=== PATIENT | female | born 1995 | race Caucasian/White ===

== ENCOUNTER 2024-04-04 21:58 | Emergency (ER) | payer OTHER, SELFPAY ==
[2024-04-04 22:00] VITALS: BP 107/64
[2024-04-04 23:12] LABS: % Basophils 0.3 % (0-2); % Eosinophils 0.8 % (0-6); % Immature Granulocytes 0.3 % (0-0.5); % Lymphocytes 19.6 % (20.5-51.1); % Monocytes 9.3 % (1.7-9.3); % Neutrophils 69.7 % (42.2-75.2); Absolute Lymphocytes 0.8 10^3/uL (1.2-3.4); Absolute Monocytes 0.4 10^3/uL (0.1-0.6); Absolute Neutrophils 2.8 10^3/uL (1.4-6.5); Hematocrit 31.6 % (37.0-47.0); Hemoglobin 10.7 g/dL (12.0-16.0); Mean Corp Hgb Conc. 33.9 g/dL (33.0-37.0); Mean Corpuscular Hgb 26.8 pg (27.0-31.0); Mean Platelet Volume 10.7 fL (7.4-10.4); Nucleated Red Blood Cells % 0 %; Platelet Count 146 10^3/uL (130-400); Red Cell Dist. Width 17.3 % (11.5-14.5)
[2024-04-04 23:27] LABS: ALT (SGPT) 16 U/L (0-35); AST (SGOT) 24 U/L (14-36); Alkaline Phosphatase 55 U/L (38-126); Blood Urea Nitrogen 13 mg/dl (7-17); Calcium 9.4 mg/dl (8.4-10.2); Carbon Dioxide 22 mmol/L (22-30); Chloride 108 mmol/L (98-107); Glucose 104 mg/dl (70-99); Lipase 73 U/L (23-300); Potassium 3.8 mmol/L (3.5-5.1); Sodium 137 mmol/L (135-145); Total Bilirubin 0.4 mg/dl (0.2-1.3); Total Protein 6.6 g/dl (6.3-8.2); eGFR > 60.00
--- NOTE | 2024-04-05 00:09 | ED.GENMED ---
History of Present Illness
<Kendall Hernandez MD - Last Filed: 04/05/24 02:12>
General
Chief Complaint: Abdominal Pain
Source: patient and spouse
Exam Limitations: none
Time Seen by Provider: 04/04/24 23:08
Nursing documentation reviewed up to this point in time: agreed with
Travel History
Have you had any contact with someone who has COVID-19?: No
Do you have any symptoms of coronavirus? Fever > 100 degrees, chills, cough, shortness of breath, sore throat, loss of taste or smell, muscle aches, or headache?: No
History of Present Illness
History of Present Illness:
Patient G2, P1, approximately 6 weeks , presents to ED secondary to diffuse abdominal cramping sensation followed by 3 episodes of diarrhea, on approxi-1 hour after having dinner this evening. Abdominal pain described as diffuse, crampy,
without any alleviating or exacerbating factors. However, since onset of symptoms, patient states that her abdominal pain has improved. Denies vomiting. Denies fever or chills. Patient's spouse had same food, and is without any symptoms.
Patient has an appointment with her [employer] physician in 1 month. Denies recent illness. Denies trauma. Denies vaginal bleeding.
Past History
<Kendall Hernandez MD - Last Filed: 04/05/24 02:12>
Past History
ED Past Medical History: Hypothyroidism, Other (Iron deficient anemia) and Other (PFO)
ED Past Surgical History: and Orthopedic (Back surgery)
Social History
Tobacco: Non-smoker
Alcohol: None
Drug: None
Living: with family
Review of Systems
<Kendall Hernandez MD - Last Filed: 04/05/24 02:12>
Review of Systems
Allergies reviewed?: Yes
All Other Systems: ROS reviewed and negative except as documented in HPI and ROS
Constitutional: Reports no symptoms
EENT: Reports no symptoms
Respiratory: Reports no symptoms
Cardiac: Reports no symptoms
ABD/GI: Reports abdominal pain and diarrhea; Denies nausea or vomiting
: Denies bleeding
Musculoskeletal: Reports no symptoms
Skin: Reports no symptoms
Neurological: Reports no symptoms
Phy Exam
<Kendall Hernandez MD - Last Filed: 04/05/24 02:12>
Physical Exam
Physical Exam:
Physical Exam
General: no apparent distress, not acutely ill. afebrile
Head: nc/at. eomi
Neck: supple. no meningeal signs.
Heart: s1/s2 regular rate and rhythm, no murmur. equal radial pulses.
Lungs: no acute respiratory distress. clear bilaterally
Abdomen: normal bowel sounds. mild diffuse abdominal tenderness without distention.
Neuro: alert and oriented. no focal neurological deficits
Skin: no rash
Psychiatric: well kept. interactive and cooperative
Extremities: no edema. no calf tenderness.
Course
<Kendall Hernandez MD - Last Filed: 04/05/24 02:12>
Orders/Labs/Results
Orders:
Orders
04/04/24 23:06
Complete Blood Count/With Diff Urgent
Comprehensive Metabolic Panel Urgent
HCG, Beta Quantitative [Beta HCG Quantitative] Urgent
Is this a screen?: No
Lipase Urgent
04/05/24 01:07
US W Transvaginal Urgent
Reason For Exam: lower abdominal pain
Abnormal Lab Results
04/04/24
23:06
WBC 4.0 L 10^3/uL
(4.8-10.8)
RBC 4.00 L 10^6/uL
(4.20-5.40)
Hgb 10.7 L g/dL
(12.0-16.0)
Hct 31.6 L %
(37.0-47.0)
MCV 79.0 L fL
(81.0-99.0)
MCH 26.8 L pg
(27.0-31.0)
RDW 17.3 H %
(11.5-14.5)
MPV 10.7 H fL
(7.4-10.4)
Absolute Lymphs (auto) 0.8 L 10^3/uL
(1.2-3.4)
Lymphocytes % 19.6 L %
(20.5-51.1)
Chloride 108 H mmol/L
(98-107)
Creatinine 0.5 L mg/dL
(0.6-1.0)
Glucose 104 H mg/dl
(70-99)
04/04/24 23:06
04/04/24 23:06
Vital Signs
Initial and Last Documented VS:
Initial Vital Signs
Temp Pulse Resp BP Pulse Ox
98.4 F 60 16 107/64 99
04/04/24 22:00 04/04/24 22:00 04/04/24 22:00 04/04/24 22:00 04/04/24 22:00
Last Documented Vital Signs
Temp Pulse Resp BP Pulse Ox
98.4 F 56 16 94/58 99
04/04/24 22:00 04/05/24 01:57 04/05/24 01:57 04/05/24 01:57 04/05/24 01:57
<José Miguel Tiwari, DO - Last Filed: 04/05/24 03:26>
Orders/Labs/Results
Orders:
Orders
04/04/24 23:06
Complete Blood Count/With Diff Urgent
Comprehensive Metabolic Panel Urgent
HCG, Beta Quantitative [Beta HCG Quantitative] Urgent
Is this a screen?: No
Lipase Urgent
04/05/24 01:07
US W Transvaginal Urgent
Reason For Exam: lower abdominal pain
Abnormal Lab Results
04/04/24
23:06
WBC 4.0 L 10^3/uL
(4.8-10.8)
RBC 4.00 L 10^6/uL
(4.20-5.40)
Hgb 10.7 L g/dL
(12.0-16.0)
Hct 31.6 L %
(37.0-47.0)
MCV 79.0 L fL
(81.0-99.0)
MCH 26.8 L pg
(27.0-31.0)
RDW 17.3 H %
(11.5-14.5)
MPV 10.7 H fL
(7.4-10.4)
Absolute Lymphs (auto) 0.8 L 10^3/uL
(1.2-3.4)
Lymphocytes % 19.6 L %
(20.5-51.1)
Chloride 108 H mmol/L
(98-107)
Creatinine 0.5 L mg/dL
(0.6-1.0)
Glucose 104 H mg/dl
(70-99)
04/04/24 23:06
04/04/24 23:06
Vital Signs
Initial and Last Documented VS:
Initial Vital Signs
Temp Pulse Resp BP Pulse Ox
98.4 F 60 16 107/64 99
04/04/24 22:00 04/04/24 22:00 04/04/24 22:00 04/04/24 22:00 04/04/24 22:00
Last Documented Vital Signs
Temp Pulse Resp BP Pulse Ox
98.4 F 56 16 94/58 99
04/04/24 22:00 04/05/24 01:57 04/05/24 01:57 04/05/24 01:57 04/05/24 01:57
<Kendall Hernandez MD - Last Filed: 04/05/24 02:12>
MDM/Problems Addressed
MDM/Problems Addressed:
Patient with an unremarkable workup in ED. However, in light of ongoing low abdominal pain, will obtain pelvic ultrasound to evaluate for potential ectopic versus miscarriage. If negative, patient will be discharged home, at which point
she will follow-up with her [employer] physician at [facility].
<José Miguel Tiwari DO - Last Filed: 04/05/24 03:26>
*Radiology
Radiology exam reviewed: radiology read reviewed (Ultrasound shows single live IUP at 5 weeks 6 days, no perigestational hemorrhage)
*Pulse Oximetry
Patient hypoxic: no
*EKG
Interpreted by ED Provider?: NA
*Heel Emery Buffer Interpretation
Rate: Heel Emery Buffer- N/A
*Critical Care Note
Total Time (30-74mins, 75-104mins- exclusive of procedures): Not Applicable
<José Miguel Tiwari DO - Last Filed: 04/05/24 03:26>
Patient Management
Escalation/DeEscalation of care consider admission/obs:
Admit not indicated
ED Attending Note
<Kendall Hernandez MD - Last Filed: 04/05/24 02:12>
-
Portions of this chart may have been created with voice recognition software.� Occasional wrong word or��sound alike� substitutions may have occurred due to the inherent limitations of voice recognition software.
Discharge Plan
Departure
Patient Disposition: Home (Routine Discharge)
Date of Disposition: 04/05/24
Time of Disposition: 03:26
Patient with high blood pressure during this ER visit?: No
Discharge Problem:
Abdominal pain,
Instructions: Abdominal Pain, Adult ED
Prescriptions:
No Action
levothyroxine 50 mcg Tablet
50 mcg PO DAILY
Referrals:
Clive Jett I., DO [Family Provider] -
Activity Restrictions/Additional Instructions:
As discussed, please follow-up with your [employer] physician for reevaluation. Please return to ED with worsening symptoms, i.e. fever/worsening pain/vaginal bleeding.
Interventions
Interventions:
*Risk Screen - Suicide Last Done: 04/05/24 01:58
*General Assessment Last Done: 04/04/24 22:00
*Neglect/Abuse Screening Last Done: 04/05/24 01:58
ED- Fall Risk Assessment Last Done: 04/05/24 01:58
*ED COVID-19 Vaccine History Last Done: 04/05/24 01:58
BM-Rbbide-Jrrjkfbkxe Assessment Last Done: 04/04/24 23:18
Discharge Date and Time
Print Language: BULGARIAN
[2024-04-05 01:57] VITALS: BP 94/58
[2024-04-05 03:34] VITALS: BP 104/68
== END 2024-04-05 03:36 | disposition home or self-care (01) ==
LOC: EMR 21:58
PROVIDERS: EMERGENCY PHYSICIAN Emergency Medicine; FAMILY PHYSICIAN Internal Medicine
DX: O99.891 Other specified diseases and conditions complicating pregnancy (principal); R10.9 Unspecified abdominal pain; E03.9 Hypothyroidism, unspecified; R19.7 Diarrhea, unspecified; Z3A.01 Less than 8 weeks gestation of pregnancy
CPT/HCPCS: 99284; 76801; 76817; 80053; 83690; 84702; 85025

== ENCOUNTER 2024-11-30 21:14 | Emergency (ER) | payer OTHER, SELFPAY ==
[2024-11-30 21:18] VITALS: BP 124/92
[2024-11-30 21:42] LABS: % Eosinophils 1.6 % (0-6); % Immature Granulocytes 1.3 % (0-0.5); % Monocytes 6.2 % (1.7-9.3); % Neutrophils 71.9 % (42.2-75.2); Absolute Eosinophils 0.1 10^3/uL (0-0.7); Absolute Immature Granulocytes 0.1 10^3/uL (0-0.05); Absolute Lymphocytes 0.7 10^3/uL (1.2-3.4); Absolute Monocytes 0.2 10^3/uL (0.1-0.6); Absolute Neutrophils 2.8 10^3/uL (1.4-6.5); Hematocrit 22.8 % (37.0-47.0); Hemoglobin 7.4 g/dL (12.0-16.0); Mean Corp Hgb Conc. 32.5 g/dL (33.0-37.0); Mean Corpuscular Hgb 29.7 pg (27.0-31.0); Mean Corpuscular Volume 91.6 fL (81.0-99.0); Nucleated Red Blood Cells % 0 %; Platelet Count 140 10^3/uL (130-400); Red Blood Cell Count 2.49 10^6/uL (4.20-5.40); Red Cell Dist. Width 18.3 % (11.5-14.5); White Blood Cell Count 3.9 10^3/uL (4.8-10.8)
[2024-11-30 21:57] LABS: COVID-19 Antigen Negative (Negative)
[2024-11-30 22:02] LABS: ALT (SGPT) 58 U/L (0-35); AST (SGOT) 90 U/L (14-36); Albumin 2.8 g/dl (3.5-5.0); Alkaline Phosphatase 226 U/L (38-126); Blood Urea Nitrogen 15 mg/dl (7-17); Calcium 8.4 mg/dl (8.4-10.2); Carbon Dioxide 25 mmol/L (22-30); Chloride 104 mmol/L (98-107); Glucose 97 mg/dl (70-99); Potassium 3.5 mmol/L (3.5-5.1); Sodium 137 mmol/L (135-145); Total Bilirubin 0.9 mg/dl (0.2-1.3); Total Protein 5.2 g/dl (6.3-8.2); eGFR > 60.00
[2024-11-30] MEDS: TAMIFLU 75 MG PO (22:40)
--- NOTE | 2024-11-30 23:19 | ED.GENMED ---
History of Present Illness
General
Chief Complaint: Cold/Flu/URI Symptoms
Source: patient
Exam Limitations: none
Time Seen by Provider: 11/30/24 21:57
Nursing documentation reviewed up to this point in time: agreed with
History of Present Illness
History of Present Illness:
Patient to ED wt complaint of cough, chest congestion. Symptoms started 2 days ago. ALso reports swelling to BLE. She is 8 days post-op . Brought to eD by spouse for eval.
Past History
Past History
ED Past Medical History: Hypothyroidism, Other (Iron deficient anemia) and Other (PFO)
ED Past Surgical History: and Orthopedic (Back surgery)
Social History
Tobacco: Non-smoker
Alcohol: None
Drug: None
Living: with family
Review of Systems
Review of Systems
Allergies reviewed?: Yes
All Other Systems: ROS reviewed and negative except as documented in HPI and ROS
Constitutional: Reports fatigue
EENT: Reports no symptoms
Respiratory: Reports cough
Cardiac: Reports no symptoms
ABD/GI: Reports no symptoms (8 days post op . INcision clean and dry.)
: Reports no symptoms
Musculoskeletal: Reports edema (+2BLE)
Skin: Reports no symptoms
Neurological: Reports no symptoms
Psychiatric: Reports no symptoms
Phy Exam
General Physical Exam
General Presentation: well appearing and no apparent distress
General age: appears stated age
General Skin: warm and dry
General Habitus: normal
General Mental: alert
Pulmonary Exam
Pulmonary Exam: lungs clear, no respiratory distress and chest non tender
Gastrointestinal Exam
Gastrointestinal Exam: non tender and soft
Musculoskeletal Exam
Musculoskeletal Exam: full ROM, edema (+2 edema BLE) and neuro vasc intact
Skin Exam
Skin Exam: normal color, warm/dry and other ( incision clean nd dry. Skin edges together. No erythema.)
Psychiatric Exam
Psychiatric Exam: normal mood/affect
Course
Orders/Labs/Results
Orders:
Orders
11/30/24 21:32
COVID-19 Antigen Urgent
Source: Nasal Swab
11/30/24 21:33
Complete Blood Count/With Diff Urgent
Comprehensive Metabolic Panel Urgent
Influenza A+B Rapid Molecular Urgent
RITA Source: Nasal Swab
Specimen Description:
11/30/24 22:27
Oseltamivir Phosphate [Tamiflu] 75 mg PO NOW STA
US Periph Venous LOWER Ext Lino Urgent
Comment:
Reason For Exam: pain and swelling.
Abnormal Lab Results
11/30/24
21:33
WBC 3.9 L 10^3/uL
(4.8-10.8)
RBC 2.49 L 10^6/uL
(4.20-5.40)
Hgb 7.4 L g/dL
(12.0-16.0)
Hct 22.8 L %
(37.0-47.0)
MCHC 32.5 L g/dL
(33.0-37.0)
RDW 18.3 H %
(11.5-14.5)
Abs Immat Gran (auto) 0.1 H 10^3/uL
(0-0.05)
Absolute Lymphs (auto) 0.7 L 10^3/uL
(1.2-3.4)
Immature Gran % 1.3 H %
(0-0.5)
Lymphocytes % 19.0 L %
(20.5-51.1)
Creatinine 0.5 L mg/dL
(0.6-1.0)
AST 90 H U/L
(14-36)
ALT 58 H U/L
(0-35)
Alkaline Phosphatase 226 H U/L
(38-126)
Total Protein 5.2 L g/dl
(6.3-8.2)
Albumin 2.8 L g/dl
(3.5-5.0)
11/30/24 21:33
11/30/24 21:33
Vital Signs
Initial and Last Documented VS:
Initial Vital Signs
Temp Pulse Resp BP Pulse Ox
98.4 F 82 18 124/92 99
11/30/24 21:18 11/30/24 21:18 11/30/24 21:18 11/30/24 21:18 11/30/24 21:18
Last Documented Vital Signs
Temp Pulse Resp BP Pulse Ox
98.4 F 82 18 124/92 99
11/30/24 21:18 11/30/24 21:18 11/30/24 21:18 11/30/24 21:18 11/30/24 22:00
*Critical Care Note
Total Time (30-74mins, 75-104mins- exclusive of procedures): Not Applicable
Update Note
Update Note:
Influenza A pos. Tamiflu started in dept, she is bottle feeding. US BLE for BLE edema. Neg. for DVT. Labs reviewed. she is 8 days post . Receieved transfusions after . Hgb 7.6 now. No indication for transfusion tonight. Jaky
discharge home. FOllow up with PCP, OB in AM. Given instructions on s/s to return to ED and she is agreeable to plan.
ED Attending Note
-
Portions of this chart may have been created with voice recognition software.� Occasional wrong word or��sound alike� substitutions may have occurred due to the inherent limitations of voice recognition software.
Discharge Plan
Departure
Patient Disposition: Home (Routine Discharge)
Date of Disposition: 11/30/24
Time of Disposition: 23:51
Patient with high blood pressure during this ER visit?: No
Condition: Good
Covid-19: Not Applicable
Discharge Problem:
Influenza A
Instructions: Flu in adults - Discharge instructions
Prescriptions:
New
oseltamivir [Tamiflu] 75 mg capsule
75 mg PO BID 5 Days Qty: 10 0RF
No Action
levothyroxine 50 mcg Tablet
50 mcg PO DAILY
Referrals:
Clive Jett I., DO [Family Provider] - Follow up in 2-3 days
Interventions
Interventions:
*Risk Screen - Suicide Last Done: 11/30/24 22:42
*General Assessment Last Done: 11/30/24 22:42
*Neglect/Abuse Screening Last Done: 11/30/24 22:42
ED- Fall Risk Assessment Last Done: 11/30/24 22:48
*ED COVID-19 Vaccine History Last Done: 11/30/24 22:42
ED- Pulmonary Assessment Last Done: 11/30/24 22:42
Discharge Date and Time
Print Language: GEORGIAN
== END 2024-12-01 00:15 | disposition home or self-care (01) ==
LOC: EMR 21:14
PROVIDERS: Emergency Medicine; EMERGENCY PHYSICIAN Emergency Medicine; FAMILY PHYSICIAN Internal Medicine
DX: O90.89 Other complications of the puerperium, not elsewhere classified (principal); J10.1 Influenza due to other identified influenza virus with other respiratory manifestations; R22.43 Localized swelling, mass and lump, lower limb, bilateral; E03.9 Hypothyroidism, unspecified
CPT/HCPCS: 99284; 80053; 85025; 87502; 87811; 93970